=== PATIENT | female | born 1965 | race African-American/Black ===

== ENCOUNTER → 2018-09-13 17:42 | Outpatient (CLI) | payer MEDICAID | END | disposition home or self-care (01) | LOC: D.MAMMO 09-10 09:30 | DX: Z12.31 Encounter for screening mammogram for malignant neoplasm of breast (principal) ==

== ENCOUNTER → 2019-10-10 17:38 | Outpatient (CLI) | payer MEDICAID | END | disposition home or self-care (01) | LOC: D.MAMMO 10-07 16:00 | PROVIDERS: ATTEND Nurse Practitioner Women's Health | DX: Z12.31 Encounter for screening mammogram for malignant neoplasm of breast (principal) ==

== ENCOUNTER → 2020-05-05 | Emergency (ER) | payer OTHER ==
[~2020-05-05] VITALS: Ht 167.6 cm; Wt 68.2 kg
[~2020-05-05] MED LIST: DICLOFENAC SODI50 MG PO; LIORESAL 10 MG10 MG PO
[2020-05-05 11:59] VITALS: BP 143/88; Ht 167.6 cm; Wt 68.2 kg
[2020-05-05 15:01] LABS: BILIRUBIN NEGATIVE (NEGATIVE); KETONE NEGATIVE (NEGATIVE); NITRITE NEGATIVE (NEGATIVE); UROBILINOGEN NORMAL mg/dL (< 2)
[2020-05-05 15:03] LABS: BACTERIA FEW HPF (NONE SEEN); EPITHELIAL CELLS 0-5 /hpf (0-5); WHITE CELLS - URINE 0-5 HPF (0-4)
== END | disposition home or self-care (01) ==
LOC: D.ER 11:49
PROVIDERS: Emergency Medicine
DX: S16.1XXA Strain of muscle, fascia and tendon at neck level, initial encounter (principal); S39.012A Strain of muscle, fascia and tendon of lower back, initial encounter; A59.9 Trichomoniasis, unspecified; V89.2XXA Person injured in unspecified motor-vehicle accident, traffic, initial encounter; Y93.9 Activity, unspecified; Y92.9 Unspecified place or not applicable

== ENCOUNTER 2021-01-13 08:36 | Emergency (ER) | payer OTHER ==
[~2021-01-13] VITALS: Ht 167.6 cm; Wt 61.4 kg
[2021-01-13 08:41] VITALS: BP 148/91; Ht 167.6 cm; Wt 61.4 kg
[2021-01-13] MEDS ORDERED: IBUPROFEN800 MG PO (09:41)
[2021-01-13] MEDS ORDERED: CYCLOBENZAPRINE10 MG PO (09:41)
[2021-01-13] MEDS ORDERED: ACETAMINOPHEN500 M1 PO (09:41)
== END 2021-01-13 09:57 | disposition home or self-care (01) ==
LOC: D.ER 08:36
DX: M54.2 Cervicalgia (principal); G89.29 Other chronic pain; M79.10 Myalgia, unspecified site